=== PATIENT | female | born 2005 | race Two or more races ===

== ENCOUNTER 2025-03-24 07:40 | Outpatient (CLI) | payer OTHER | END 2025-03-24 07:42 | disposition home or self-care (01) | LOC: PRENATAL 07:40 | PROVIDERS: ATTEND Obstetrics & Gynecology Maternal & Fetal Medicine | DX: O36.80X0 Pregnancy with inconclusive fetal viability, not applicable or unspecified (principal); Z36.82 Encounter for antenatal screening for nuchal translucency; Z14.8 Genetic carrier of other disease; Z3A.14 14 weeks gestation of pregnancy ==

== ENCOUNTER 2025-05-08 12:15 | Outpatient (CLI) | payer OTHER | END 2025-05-08 12:16 | disposition home or self-care (01) | LOC: PRENATAL 12:15 | PROVIDERS: ATTEND Obstetrics & Gynecology Maternal & Fetal Medicine | DX: O44.02 Complete placenta previa NOS or without hemorrhage, second trimester (principal); Z3A.20 20 weeks gestation of pregnancy ==